=== PATIENT | female | born 1995 | race Caucasian/White ===

== ENCOUNTER 2018-03-29 20:23 | Observation (INO) ==
[2018-03-29] MEDS ORDERED: Naloxone 0.4 MG/ML INJ IVP PRN (23:53)
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
[2018-03-29] MEDS ORDERED: Isovue-370 500 ML INFUS..BTL IV ONE (23:54)
[2018-03-30] MEDS ORDERED: traMADol 50 MG TABLET PO PRN (00:44)
[2018-03-30] MEDS ORDERED: *HR* HYDROcodone/Acet 5/325 mg TABLET PO PRN (00:44)
[2018-03-30] MEDS ORDERED: Naloxone 0.4 MG/ML INJ IVP PRN (00:44)
[2018-03-30] MEDS ORDERED: Acetaminophen 325 MG TABLET PO PRN (00:44)
[2018-03-30 01:36] LABS: Basophils # 0.1 K/mcL (0.0-0.2); Basophils % 0.8 %; Eosinophils # 0.1 K/mcL (0.0-0.6); Eosinophils % 0.7 %; Hematocrit 36.6 % (35.3-44.9); Hemoglobin 11.4 g/dL (11.5-15.4); Immature Granulocytes % 0.4 % (0-4); Lymphocytes # 2.7 K/mcL (0.6-4.6); Lymphocytes % 24.2 %; Mean Corpuscular HGB Conc 31.1 g/dL (31.6-35.5); Mean Corpuscular Hemoglobin 26.7 pg (28.0-33.3); Mean Corpuscular Volume 85.7 fL (83.0-100.0); Mean Platelet Volume 11.5 fL (9.4-12.4); Monocytes # 0.6 K/mcL (0.0-1.3); Neutrophils # 7.8 K/mcL (1.6-8.9); Platelet Count 320 K/mcL (140-400); Red Blood Count 4.27 M/mcL (3.82-4.97); Segmented Neutrophils % 68.9 %
[2018-03-30 01:43] LABS: Prothrombin Time 11.6 Seconds (9.4-12.1)
[2018-03-30 01:55] LABS: BUN/Creatinine Ratio 33 (6-26); Blood Urea Nitrogen 16 mg/dL (6-20); C-Reactive Protein 11 mg/L (Less than 10); Calcium 9.4 mg/dL (8.6-10.3); Carbon Dioxide 23 mEq/L (23-29); Chloride 105 mEq/L (98-107); Creatine Kinase 21 Units/L (30-223); Glucose 101 mg/dL (70-105); Osmolality,Calculated 287 (280-300); Potassium 3.3 mEq/L (3.5-5.1); Sodium 138 mEq/L (136-145); eGFR For Non-African Americans > 60 (> 60)
[2018-03-30 01:56] LABS: % Iron Saturation 11 % (15-50); Iron 53 mcg/dL (50-170); Transferrin 349 mg/dL (203-362)
[2018-03-30 02:16] LABS: Ferritin 12 ng/mL (10-120)
[2018-03-30] MEDS: *HR* Heparin 5,000 UNIT/ML VIAL SQ SCH ×2 (06:02→18:20)
[2018-03-30] MEDS ORDERED: 0.9 % Sodium Chloride 1,000 ML IVC SCH (08:30)
--- NOTE | 2018-03-30 10:02 | Internal Med Progress Note ---
Hospitalist Progress Note - Encounter Date of Encounter: 03/30/18 Time of Encounter: 10:02 - Exam Vitals: Temp Pulse Resp BP Pulse Ox 98.4 F 62 14 80/48 99 03/30/18 07:50 03/30/18 07:50 03/30/18 07:50 03/30/18 07:50 03/30/18 07:50 - Assessment and Plan (1) DVT prophylaxis Current Visit: Yes Status: Acute (2) Gangrene of thumb Current Visit: Yes Status: Acute (3) Hypokalemia Current Visit: Yes Status: Acute - Time Spent with Patient Total time spent is greater than 50% in coordination of care (as documented) at patient's floor/unit and/or counseling patient: Internal Medicine: Result - Labs CBC & Chem 7: 03/30/18 01:19 03/30/18 01:19 Labs: Short CBC 03/30/18 Range/Units 01:19 WBC 11.3 H (4.3-11.1) K/mcL Hgb 11.4 L (11.5-15.4) g/dL Hct 36.6 (35.3-44.9) % Plt Count 320 (140-400) K/mcL Neutrophils # 7.8 (1.6-8.9) K/mcL BMP 03/30/18 01:19 Sodium 138 Potassium 3.3 L Chloride 105 Carbon Dioxide 23 BUN 16 Creatinine 0.48 L Glucose 101 Calcium 9.4 - ABG Interpretation ABG results: PT/INR, D-dimer PT 11.6 Seconds (9.4-12.1) 03/30/18 01:19 - Impressions Impressions Upper Extremity CTA 03/30/18 23:54 IMPRESSION: 1. The ulnar artery is patent to the hand, where it provides dominant supply to the palmar arch. Although spatial resolution limits evaluation of the digital arteries, flow is seen within the digital arteries to the thumb. 2. The brachial artery appears to bifurcate into multiple small collaterals just proximal to the antecubital fossa, which may be related to vasospasm or injury from recent pathology in this region. Collaterals reconstitute flow in the proximal radial, ulnar, and intraosseous arteries which are patent to the wrist/hand. Decreased opacification is seen in the radial artery at the level of the distal forearm, which could be related to vasospasm. D/ / 03/30/2018 08:45:05 Jacky Jurado MD / [place] Interpreting Provider: Jacky Jurado MD Consult Discharge Plan - Plan Referrals: NONE,PCP [Primary Care Provider] -
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
[2018-03-30] MEDS: *HR* OxyCODONE Immed Rel 5 MG TABLET PO PRN ×2 (10:45→18:20)
[2018-03-30] MEDS: Ampicillin/Sulbactam 3,000 MG in 0.9 % Sodium Chloride Mini Bag 100 ML IVPB SCH ×3 (10:48→18:23)
[2018-03-30 11:05] VITALS: BP 126/66
--- NOTE | 2018-03-30 13:39 | Orthopedic Consult Note ---
Date of Encounter: 03/30/18 Time of Encounter: 10:30 Assessment and Plan (1) Ischemia of digits of hand Current Visit: Yes Status: Acute At this point I do not feel that there are any orthopedic emergencies. She does have decreased perfusion to the right hand after vascular repair at an outlying facility, but still does have some perfusion. She will likely require a vascular revision. She does have likely median and ulnar nerve lacerations though it is not entirely clear what repair she had as we do not have the records from [place]. I did have a discussion with Dr. An as well as the patient and significant other and we feel that given the multiple disciplinary nature of this patient's treatment needs including possible revision nerve r epair or grafting and recovery that she would be best served at a tertiary referral center and plans have been set up to transfer her to [facility]. I did discuss the orthopedic side of the case with Dr. Lara at [facility]. I will be available as needed. History of Present Illness HPI: Ms. Barreto is a 23 year old female who is currently admitted to the hospitalist after transfer from [facility]. The patient used to live in [place] in 2 months ago sustained a penetrating injury to the volar elbow region. The details are not exactly clear on the nature of her injury however based on the patient's presentation and what she can tell me she severed either the brachial artery or one of its major branches and required a vascular reconstruction using a greater saphenous vein graft obtained from the right thigh. Also at some point in a subsequent procedure she underwent volar compartment fasciotomy followed by closure. She was seen in the emergency department about a week ago after placing her thumb on a heating pad and was diagnosed with a second-degree burn from the heating pad however the blistering and darkening of the thumb is more likely related to decreased perfusion to the thumb. Nevertheless she was subsequently admitted and found to have apparent failure of her grafting and is perfusing the hand ulnarly through collateral circulation. The patient also seems to have had injuries to both the median and ulnar nerve on history but it is unclear the type of repair that occurred. She currently complains of numbness about all the fingers and decreased function of the hand. She denies any other associated injuries. Symptoms and pain in the right forearm and hand are worse with movement and use and better with rest. No other associated signs or symptoms or modifying factors. Past Med Surg Social Fam HX - Past Medical History Medical history: other Additional medical history: anemia Psychiatric history: anxiety, depression - Past Surgical History Surgical History: vascular surgery (Vascular Surgery to Right Arm) Additional surgical history: plates in ankle - Social History Smoking Status: Never smoker Smokeless Tobacco Status: No Alcohol use: none Drug use: none Medications and Allergies Doxylamine Succinate [Unisom] 25 mg PO HS PRN 03/30/18 [History] Allergy/AdvReac Type Severity Reaction Status Date / Time No Known Allergies Allergy Verified 03/30/18 11:33 All Systems Reviewed: Constitutional and musculoskeletal systems were reviewed and are negative unless otherwise stated in history of present illness. Physical Exam - Constitutional Vitals: Temp Pulse Resp BP Pulse Ox 97.8 F 79 14 126/66 99 03/30/18 12:00 03/30/18 12:00 03/30/18 12:00 03/30/18 12:00 03/30/18 12:00 CONSTITUTIONAL -Vitals reviewed -The patient is well developed, well nourished, well groomed PSYCHIATRIC -Fully alert and oriented -Pleasant mood RIGHT UPPER EXTREMITY Inspection shows that her incisions are well-healed. She has a volar incision in the volar elbow region as well as the volar compartment fasciotomy. No swell ing in the compartments are all soft. She is perfusing the hand well through her ulnar circulation. I am not able to palpate a radial pulse. She does have this starts of necrosis at the thumb tip with hyperemia proximally consistent with ischemia. No concern for infection. She can flex and extend the digits and thumb however she cannot oppose the thumb and has no intrinsic function. She has weakness with digital flexion. Sensation is severely decreased about all the digits of the hand sparing the small finger to some degree. She can flex and extend the elbow and wrist. Results - Labs Result Diagrams: 03/30/18 01:19 03/30/18 01:19 Labs: Abnormal lab results WBC 11.3 K/mcL (4.3-11.1) H 03/30/18 01:19 Hgb 11.4 g/dL (11.5-15.4) L 03/30/18 01:19 MCH 26.7 pg (28.0-33.3) L 03/30/18 01:19 MCHC 31.1 g/dL (31.6-35.5) L 03/30/18 01:19 RDW 15.0 % (11.5-14.5) H 03/30/18 01:19 ESR 70 mm/hr (0-15) H 03/30/18 01:19 Potassium 3.3 mEq/L (3.5-5.1) L 03/30/18 01:19 Creatinine 0.48 mg/dL (0.60-1.20) L 03/30/18 01:19 BUN/Creatinine Ratio 33 (6-26) H 03/30/18 01:19 % Saturation 11 % (15-50) L 03/30/18 01:19 Creatine Kinase 21 Units/L (30-223) L 03/30/18 01:19 C-Reactive Protein 11 mg/L (Less than 10) H 03/30/18 01:19 H & H 03/30/18 Range/Units 01:19 Hgb 11.4 L (11.5-15.4) g/dL Hct 36.6 (35.3-44.9) % All other labs normal. Consult Discharge Plan - Plan Referrals: NONE,PCP [Primary Care Provider] -
== END 2018-03-30 19:12 | disposition critical access hospital (66) ==
LOC: 2NNU
PROVIDERS: ADMIT Internal Medicine; ATTEND Internal Medicine

== ENCOUNTER 2019-12-01 11:25 | Observation (INO) ==
[2019-12-01] MEDS ORDERED: HydrOXYzine 100 MG/2 ML VIAL IM ONE (12:12)
[2019-12-01 13:12] LABS: Bilirubin,Urine Negative (Negative); Blood,Urine Negative (Negative); Clarity,Urine Clear (Clear); Color,Urine Light-Yellow (Yellow); Glucose,Urine (UA) Normal (Normal); Ketones,Urine 10 mg/dL (Negative); Leukocyte Esterase,Urine Negative (Negative); Mucus,Urine Few per lpf (None-Few); Nitrite,Urine Negative (Negative); PH,Urine 8.5 pH Units (5.0-8.0); Protein,Urine 70 mg/dL (Neg-Trace); RBC,Urine 0-3 per hpf (0-3); Squamous Epithelial Cell,Urine Moderate per hpf (None-Few); Urobilinogen,Urine Normal (Normal); WBC,Urine 0-3 per hpf (0-3)
[2019-12-01 13:20] LABS: Amphetamine Screen,Urine Negative ng/mL (Cutoff=1000); Barbiturate Screen,Urine Negative ng/mL (Cutoff=200); Benzodiazepines Screen,Urine Negative ng/mL (Cutoff=200); Cannabinoid Screen,Urine Positive ng/mL (Cutoff = 50); Cocaine Screen,Urine Negative ng/mL (Cutoff= 300); Opiate Screen,Urine Negative ng/mL (Cutoff=300); Phencyclidine Screen,Urine Negative ng/mL (Cutoff=25)
[2019-12-01 13:23] LABS: Basophils # 0.1 K/mcL (0.0-0.2); Eosinophils % 0.1 %; Hematocrit 41.3 % (35.3-44.9); Hemoglobin 13.3 g/dL (11.5-15.4); Immature Granulocytes % 0.4 % (0-4); Lymphocytes # 2.1 K/mcL (0.6-4.6); Lymphocytes % 20.5 %; Mean Corpuscular HGB Conc 32.2 g/dL (31.6-35.5); Mean Corpuscular Hemoglobin 29.8 pg (28.0-33.3); Mean Corpuscular Volume 92.4 fL (83.0-100.0); Mean Platelet Volume 10.8 fL (9.4-12.4); Monocytes # 0.5 K/mcL (0.0-1.3); Monocytes % 4.7 %; Neutrophils # 7.5 K/mcL (1.6-8.9); Platelet Count 307 K/mcL (140-400); Red Blood Count 4.47 M/mcL (3.82-4.97); Red Cell Distribution Width 13.7 % (11.5-14.5); Segmented Neutrophils % 73.3 %; White Blood Count 10.2 K/mcL (4.3-11.1)
[2019-12-01 13:44] LABS: Acetaminophen < 10 mcg/mL (10-20); BUN/Creatinine Ratio 13 (6-26); Blood Urea Nitrogen 7 mg/dL (6-20); Calcium 8.6 mg/dL (8.6-10.3); Carbon Dioxide 20 mEq/L (23-29); Chloride 102 mEq/L (98-107); Ethanol 42 mg/dL (Less than 10); Glucose 95 mg/dL (70-105); Osmolality,Calculated 282 (280-300); Potassium 3.6 mEq/L (3.5-5.1); Salicylate < 2.5 mg/dL (15.0-30.0); Sodium 137 mEq/L (136-145); eGFR For African Americans > 60 (> 60); eGFR For Non-African Americans > 60 (> 60)
[2019-12-01 13:57] LABS: Thyroid Stimulating Hormone 0.769 mcIU/mL (0.340-5.600)
[2019-12-01 14:08] LABS: Troponin I < 0.03 ng/mL (< 0.04)
[2019-12-01 14:17] LABS: Estimated Average Glucose 103 mg/dl; Hemoglobin A1C 5.2 %
[2019-12-01] MEDS ORDERED: Isovue-370 500 ML BOTTLE IVP ONE (14:24)
[2019-12-01] MEDS: 0.9 % Sodium Chloride 1,000 ML IVC SCH ×3 (16:31→20:58)
[2019-12-01] MEDS ORDERED: Ibuprofen 600 MG TABLET PO ONE (17:05)
[2019-12-01] MEDS ORDERED: diazePAM 10 MG TABLET PO ONE (18:16)
[2019-12-01] MEDS ORDERED: Thiamine (B-1) 100 MG, Folic Acid 1 MG, MVI, adult with vitamin K 10 ML in 0.9 % Sodi... IVPB ONE (18:30)
[2019-12-01] MEDS ORDERED: *HR* LORazepam 2 MG/ML VIAL IVP PRN (19:50)
[2019-12-01] MEDS ORDERED: *HR* Promethazine 25 MG/ML VIAL IVP PRN (19:51)
[2019-12-01] MEDS ORDERED: Naloxone 0.4 MG/ML INJ IVP PRN (19:51)
[2019-12-01] MEDS: Thiamine (B-1) 100 MG TABLET PO SCH (20:59)
[2019-12-01] MEDS: Folic Acid 1 MG TABLET PO SCH (20:59)
[2019-12-01] MEDS ORDERED: Melatonin 3 MG TABLET PO PRN (22:11)
[2019-12-02] MEDS: 0.9 % Sodium Chloride 1,000 ML IVC SCH (05:27)
[2019-12-02 06:23] LABS: Basophils # 0.1 K/mcL (0.0-0.2); Basophils % 1.1 %; Eosinophils # 0.1 K/mcL (0.0-0.6); Eosinophils % 1.6 %; Hematocrit 35.3 % (35.3-44.9); Immature Granulocytes % 0.2 % (0-4); Lymphocytes # 2.9 K/mcL (0.6-4.6); Lymphocytes % 45.8 %; Mean Corpuscular HGB Conc 31.4 g/dL (31.6-35.5); Mean Corpuscular Hemoglobin 30.1 pg (28.0-33.3); Mean Corpuscular Volume 95.7 fL (83.0-100.0); Mean Platelet Volume 10.9 fL (9.4-12.4); Monocytes # 0.5 K/mcL (0.0-1.3); Monocytes % 7.1 %; Neutrophils # 2.8 K/mcL (1.6-8.9); Platelet Count 211 K/mcL (140-400); Red Blood Count 3.69 M/mcL (3.82-4.97); Red Cell Distribution Width 13.6 % (11.5-14.5); Segmented Neutrophils % 44.2 %; White Blood Count 6.3 K/mcL (4.3-11.1)
[2019-12-02 06:24] LABS: Hemoglobin 11.1 g/dL (11.5-15.4)
[2019-12-02 06:36] LABS: Albumin 3.4 g/dL (3.5-5.7); Albumin/Globulin Ratio 1.5 (1.1-2.2); Bilirubin,Direct 0.2 mg/dL (0.0-0.2); Bilirubin,Indirect 0.7 mg/dL (0.0-1.0); Bilirubin,Total 0.9 mg/dL (0.3-1.0); Globulin 2.3 g/dL (2.4-3.5); Total Protein 5.7 g/dL (6.4-8.9)
[2019-12-02 06:38] LABS: BUN/Creatinine Ratio 17 (6-26); Blood Urea Nitrogen 9 mg/dL (6-20); Calcium 7.8 mg/dL (8.6-10.3); Carbon Dioxide 23 mEq/L (23-29); Chloride 111 mEq/L (98-107); Glucose 90 mg/dL (70-105); Magnesium 1.8 mg/dL (1.6-2.6); Osmolality,Calculated 286 (280-300); Phosphorous 3.8 mg/dL (2.7-4.5); Potassium 3.6 mEq/L (3.5-5.1); Sodium 139 mEq/L (136-145); eGFR For African Americans > 60 (> 60); eGFR For Non-African Americans > 60 (> 60)
[2019-12-02 06:55] VITALS: BP 113/83
[2019-12-02] MEDS: Folic Acid 1 MG TABLET PO SCH (08:58)
[2019-12-02] MEDS: Thiamine (B-1) 100 MG TABLET PO SCH (08:59)
== END 2019-12-02 13:01 | disposition home or self-care (01) ==
LOC: 3BNU 11:25 → EMEROOARM 11:25 → SUATTDRO 18:29 → 3BNU 18:37
PROVIDERS: ADMIT Family Medicine; ATTEND Internal Medicine